=== PATIENT | male | born 1955 | race Caucasian/White ===

== ENCOUNTER 2021-02-11 12:51 | Inpatient (IN) ==
[2021-02-11] MEDS ORDERED: Nitroglycerin 0.4 MG TAB.SUBL SL ONE (13:19)
[2021-02-11 13:26] LABS: Basophils # 0.1 K/mcL (0.0-0.2); Basophils % 0.5 %; Eosinophils # 0.1 K/mcL (0.0-0.6); Eosinophils % 0.7 %; Hematocrit 47.3 % (37.5-50.1); Hemoglobin 15.6 g/dL (12.9-16.9); Immature Granulocytes % 0.7 % (0-4); Lymphocytes # 3.2 K/mcL (0.6-4.6); Lymphocytes % 19.5 %; Mean Corpuscular Hemoglobin 30.7 pg (28.0-33.3); Mean Corpuscular Volume 93.1 fL (83.0-100.0); Mean Platelet Volume 10.7 fL (9.4-12.4); Monocytes # 0.4 K/mcL (0.0-1.3); Monocytes % 2.4 %; Neutrophils # 12.6 K/mcL (1.6-8.9); Platelet Count 212 K/mcL (140-400); Red Blood Count 5.08 M/mcL (4.19-5.50); Red Cell Distribution Width 12.4 % (11.5-14.5); Segmented Neutrophils % 76.2 %; White Blood Count 16.5 K/mcL (4.3-11.1)
[2021-02-11 13:35] LABS: INR 1.1; Prothrombin Time 12.6 Seconds (9.4-12.1)
[2021-02-11] MEDS ORDERED: Isovue-370 500 ML BOTTLE IVP ONE (13:41)
[2021-02-11 13:49] LABS: BUN/Creatinine Ratio 17 (6-26); Blood Urea Nitrogen 17 mg/dL (8-23); Calcium 8.9 mg/dL (8.6-10.3); Carbon Dioxide 22 mEq/L (23-29); Chloride 101 mEq/L (98-107); Glucose 236 mg/dL (70-105); Osmolality,Calculated 289 (280-300); Potassium 3.5 mEq/L (3.5-5.1); Sodium 135 mEq/L (136-145); Troponin I < 0.03 ng/mL (< 0.04); eGFR For African Americans > 60 (> 60); eGFR For Non-African Americans > 60 (> 60)
[2021-02-11] MEDS ORDERED: cefTRIAXone 1,000 MG in 0.9 % Sodium Chloride Mini Bag 100 ML IVPB ONE (14:54)
[2021-02-11] MEDS ORDERED: Azithromycin 500 MG in 0.9 % Sodium Chloride 250 ML IVPB ONE (14:54)
[2021-02-11] MEDS ORDERED: CefTRIAXone 1,000 MG VIAL ONE (15:07)
[2021-02-11] MEDS ORDERED: 0.9 % Sodium Chloride 250 ML ONE (15:08)
[2021-02-11] MEDS ORDERED: Acetaminophen 325 MG TABLET PO PRN (16:22)
[2021-02-11] MEDS ORDERED: Naloxone 0.4 MG/ML INJ IVP PRN (16:22)
[2021-02-11] MEDS ORDERED: Perflutren Lipid Microsphere 1.3 ML in 0.9 % Sodium Chloride 8.7 ML IVP PRN (16:35)
[2021-02-11 16:57] LABS: Adenovirus Not Detected (Not Detect); Coronavirus 229E Not Detected (Not Detect); Coronavirus HKU1 Not Detected (Not Detect); Coronavirus NL63 Not Detected (Not Detect); Coronavirus OC43 Not Detected (Not Detect); Human Metapneumovirus Not Detected (Not Detect); Human Rhinovirus/Enterovirus Not Detected (Not Detect); Influenza A Subtype 2009 H1 Not Detected (Not Detect); SARS-CoV-2 Not Detected (Not Detect)
[2021-02-11 16:58] LABS: Bordetella Pertussis Not Detected (Not Detect); Chlamydophila pneumoniae Not Detected (Not Detect); Influenza B Not Detected (Not Detect); Mycoplasma pneumoniae Not Detected (Not Detect); Parainfluenza Virus 1 Not Detected (Not Detect); Parainfluenza Virus 2 Not Detected (Not Detect); Parainfluenza Virus 3 Not Detected (Not Detect); Parainfluenza Virus 4 Not Detected (Not Detect); Respiratory Syncytial Virus Not Detected (Not Detect)
[2021-02-11] MEDS: Ondansetron 4 MG/2 ML VIAL IVP PRN (17:05)
[2021-02-11] MEDS ORDERED: *HR* Heparin 5,000 UNIT/ML VIAL SQ SCH (18:00)
[2021-02-11] MEDS ORDERED: *HR* Heparin 5,000 UNIT/ML VIAL IVP PRN ×2 (20:21)
[2021-02-11 20:54] LABS: Heparin anti-factor XA UFH < 0.04 IU/mL (0.30-0.70)
[2021-02-11] MEDS: Doxycycline 100 MG in 0.9 % Sodium Chloride Mini Bag 100 ML IVPB SCH (21:13)
[2021-02-11] MEDS: ALPRAZolam 0.25 MG TABLET PO SCH (21:14)
[2021-02-11] MEDS: Heparin 25,000UNIT/250ML 1/2NS 25,000 UNIT/250 ML IV.SOLN IVC SCH (21:25)
[2021-02-11] MEDS ORDERED: *HR* Heparin 5,000 UNIT/ML VIAL IVP ONE (21:58)
[2021-02-11] MEDS ORDERED: *HR* Promethazine 25 MG/ML VIAL IM ONE (22:25)
[2021-02-12 01:17] LABS: Hematocrit 49.3 % (37.5-50.1); Hemoglobin 16.3 g/dL (12.9-16.9); Mean Corpuscular HGB Conc 33.1 g/dL (31.6-35.5); Mean Corpuscular Hemoglobin 30.5 pg (28.0-33.3); Mean Corpuscular Volume 92.3 fL (83.0-100.0); Mean Platelet Volume 10.7 fL (9.4-12.4); Platelet Count 213 K/mcL (140-400); Red Blood Count 5.34 M/mcL (4.19-5.50); Red Cell Distribution Width 12.4 % (11.5-14.5); White Blood Count 13.6 K/mcL (4.3-11.1)
[2021-02-12] MEDS ORDERED: Morphine Sulfate 2 MG/ML SYRINGE IVP ONE (03:06)
[2021-02-12 06:10] LABS: BUN/Creatinine Ratio 20 (6-26); Blood Urea Nitrogen 18 mg/dL (8-23); Calcium 9.1 mg/dL (8.6-10.3); Carbon Dioxide 24 mEq/L (23-29); Chloride 99 mEq/L (98-107); Glucose 135 mg/dL (70-105); Osmolality,Calculated 280 (280-300); Potassium 4.5 mEq/L (3.5-5.1); Sodium 133 mEq/L (136-145); eGFR For African Americans > 60 (> 60); eGFR For Non-African Americans > 60 (> 60)
[2021-02-12] MEDS: Doxycycline 100 MG in 0.9 % Sodium Chloride Mini Bag 100 ML IVPB SCH ×2 (06:57→18:29)
[2021-02-12] MEDS: Aspirin Enteric Coated 81 MG Tablet PO SCH (08:39)
[2021-02-12] MEDS: ALPRAZolam 0.25 MG TABLET PO SCH ×2 (08:39→20:13)
[2021-02-12] MEDS: lisinopriL 5 MG TABLET PO SCH (08:40)
[2021-02-12] MEDS: Isosorbide MONOnitrate (24 HR) 30 MG TAB.ER.24H PO SCH (11:20)
[2021-02-12] MEDS: MetroNIDAZOLE 500 MG/100 ML 500 MG/100 ML BAG IVPB SCH (18:30)
[2021-02-12] MEDS: Ondansetron 4 MG/2 ML VIAL IVP PRN (20:13)
[2021-02-13] MEDS: MetroNIDAZOLE 500 MG/100 ML 500 MG/100 ML BAG IVPB SCH ×2 (00:05→08:41)
[2021-02-13] MEDS: Heparin 25,000UNIT/250ML 1/2NS 25,000 UNIT/250 ML IV.SOLN IVC SCH (04:08)
[2021-02-13 05:03] LABS: Basophils % 0.1 %; Hematocrit 44.6 % (37.5-50.1); Immature Granulocytes % 0.5 % (0-4); Lymphocytes # 2.6 K/mcL (0.6-4.6); Lymphocytes % 17.2 %; Mean Corpuscular HGB Conc 33.6 g/dL (31.6-35.5); Mean Corpuscular Hemoglobin 30.8 pg (28.0-33.3); Mean Corpuscular Volume 91.6 fL (83.0-100.0); Mean Platelet Volume 10.8 fL (9.4-12.4); Monocytes # 1.1 K/mcL (0.0-1.3); Monocytes % 7.6 %; Neutrophils # 11.1 K/mcL (1.6-8.9); Platelet Count 199 K/mcL (140-400); Red Blood Count 4.87 M/mcL (4.19-5.50); Red Cell Distribution Width 12.7 % (11.5-14.5); Segmented Neutrophils % 74.6 %; White Blood Count 14.8 K/mcL (4.3-11.1)
[2021-02-13 05:23] LABS: BUN/Creatinine Ratio 28 (6-26); Blood Urea Nitrogen 30 mg/dL (8-23); Calcium 9.4 mg/dL (8.6-10.3); Carbon Dioxide 25 mEq/L (23-29); Chloride 102 mEq/L (98-107); Glucose 119 mg/dL (70-105); Magnesium 1.7 mg/dL (1.6-2.6); Osmolality,Calculated 289 (280-300); Potassium 4.2 mEq/L (3.5-5.1); Sodium 136 mEq/L (136-145); eGFR For African Americans > 60 (> 60); eGFR For Non-African Americans > 60 (> 60)
[2021-02-13] MEDS: Doxycycline 100 MG in 0.9 % Sodium Chloride Mini Bag 100 ML IVPB SCH (06:25)
[2021-02-13] MEDS: lisinopriL 5 MG TABLET PO SCH (08:03)
[2021-02-13] MEDS: Aspirin Enteric Coated 81 MG Tablet PO SCH (08:04)
[2021-02-13] MEDS: Isosorbide MONOnitrate (24 HR) 30 MG TAB.ER.24H PO SCH (08:04)
[2021-02-13] MEDS: ALPRAZolam 0.25 MG TABLET PO SCH ×2 (08:04→20:35)
[2021-02-13] MEDS ORDERED: *HR* Heparin 10,000 UNIT/10 ML VIAL ONE (09:03)
[2021-02-13] MEDS ORDERED: 0.9 % Sodium Chloride 2,000 ML ONE (09:03)
[2021-02-13] MEDS ORDERED: Heparin 1,000 UNITS/500 mL 500 ML ONE (09:03)
[2021-02-13] MEDS ORDERED: ISOVUE-370 200 ML INFUS..BTL ONE ×2 (09:03→09:53)
[2021-02-13] MEDS ORDERED: Nitroglycerin 1,000 MCG/5 ML VIAL IV ONE (09:04)
[2021-02-13] MEDS ORDERED: *HR* Midazolam HCl 2 MG/2 ML VIAL ONE (09:07)
[2021-02-13] MEDS ORDERED: *HR* FentaNYL (PF) 100 MCG/2 ML VIAL ONE (09:08)
[2021-02-13] MEDS ORDERED: Tirofiban 12.5 MG/250ML 12.5 MG/250 ML BAG ONE (09:53)
[2021-02-13] MEDS ORDERED: Tirofiban 12.5 MG/250ML 12.5 MG/250 ML BAG IVC SCH (11:00)
[2021-02-13] MEDS ORDERED: Adenosine 90 MG/30 ML MLS IV ONE (11:00)
[2021-02-13] MEDS: metroNIDAZOLE 500 MG TABLET PO SCH (17:01)
[2021-02-13] MEDS: Doxycycline 100 MG CAPSULE PO SCH (20:35)
[2021-02-14] MEDS: metroNIDAZOLE 500 MG TABLET PO SCH ×3 (01:01→15:39)
[2021-02-14 06:39] LABS: Basophils % 0.2 %; Eosinophils % 0.1 %; Hematocrit 42.5 % (37.5-50.1); Hemoglobin 14.4 g/dL (12.9-16.9); Immature Granulocytes % 0.4 % (0-4); Lymphocytes # 3.1 K/mcL (0.6-4.6); Lymphocytes % 23.9 %; Mean Corpuscular HGB Conc 33.9 g/dL (31.6-35.5); Mean Corpuscular Hemoglobin 31.1 pg (28.0-33.3); Mean Corpuscular Volume 91.8 fL (83.0-100.0); Mean Platelet Volume 10.6 fL (9.4-12.4); Monocytes # 1.1 K/mcL (0.0-1.3); Monocytes % 8.6 %; Neutrophils # 8.7 K/mcL (1.6-8.9); Platelet Count 198 K/mcL (140-400); Red Blood Count 4.63 M/mcL (4.19-5.50); Red Cell Distribution Width 12.8 % (11.5-14.5); Segmented Neutrophils % 66.8 %
[2021-02-14 07:02] LABS: BUN/Creatinine Ratio 29 (6-26); Blood Urea Nitrogen 30 mg/dL (8-23); Calcium 8.8 mg/dL (8.6-10.3); Carbon Dioxide 23 mEq/L (23-29); Chloride 107 mEq/L (98-107); Glucose 114 mg/dL (70-105); Osmolality,Calculated 293 (280-300); Potassium 3.9 mEq/L (3.5-5.1); Sodium 138 mEq/L (136-145); eGFR For African Americans > 60 (> 60); eGFR For Non-African Americans > 60 (> 60)
[2021-02-14] MEDS: Doxycycline 100 MG CAPSULE PO SCH (07:53)
[2021-02-14] MEDS: Aspirin Enteric Coated 81 MG Tablet PO SCH (07:53)
[2021-02-14] MEDS: Isosorbide MONOnitrate (24 HR) 30 MG TAB.ER.24H PO SCH (07:53)
[2021-02-14] MEDS: ALPRAZolam 0.25 MG TABLET PO SCH (07:53)
[2021-02-14] MEDS: lisinopriL 5 MG TABLET PO SCH (07:54)
[2021-02-14 10:53] VITALS: BP 118/75
== END 2021-02-14 17:13 | disposition home health service (06) | DRG 853 ==
LOC: 2NENU 12:51 → EMEROOARM 12:51 → SUATTDRO 15:25 → 2NENU 17:15
PROVIDERS: ADMIT Internal Medicine; ATTEND Pharmacist